=== PATIENT | male | born 1930 | race Caucasian/White ===

== ENCOUNTER 2016-03-24 10:15 | Inpatient (IN) | payer MEDICARE ==
[~2016-03-24] VITALS: Ht 188 cm; Wt 115.7 kg
[2016-03-24] MEDS ORDERED: ASPIRIN 300 MG SUPP RECTAL ONE (10:57)
[2016-03-24] MEDS ORDERED: SODIUM CHLORIDE 0.9% 1,000 ML ONE (11:07)
[2016-03-24] MEDS ORDERED: GLUCAGON 1 MG VIAL IM PRN (13:05)
[2016-03-24] MEDS ORDERED: ACETAMINOPHEN 325 MG TAB PO PRN (13:05)
[2016-03-24] MEDS ORDERED: DEXTROSE 50% SYRINGE 50 ML IV PRN (13:05)
[2016-03-24] MEDS ORDERED: SALINE FLUSH 10 ML FLUSH PRN (13:05)
[2016-03-24] MEDS: NEB-ALBUTEROL 2.5 MG/3 ML INH SCH ×6 (14:00→22:29)
[2016-03-24] MEDS ORDERED: NEB-ALBUTEROL 2.5 MG/3 ML INH ONE (15:10)
[2016-03-24 16:23] VITALS: RESP 18
[2016-03-24] MEDS ORDERED: OPTIRAY 350 100 ML VIAL HMH IV ONE (16:40)
[2016-03-24 18:50] VITALS: BP_SYST 120; RESP 18
[2016-03-24 18:51] VITALS: Ht 188 cm; Wt 115.7 kg
[2016-03-24] MEDS: LACT RINGERS 1,000 ML IV SCH (19:19)
[2016-03-24] MEDS: SALINE FLUSH 10 ML FLUSH SCH (20:00)
[2016-03-24] MEDS: NYSTATIN/TRIAMCIN OINT 15 GM TOPICAL SCH (20:46)
[2016-03-24] MEDS: Atorvastatin 20 MG TAB PO SCH (21:00)
[2016-03-24 21:15] VITALS: TEMP 98.3
[2016-03-24] MEDS: FAMOTIDINE 20 MG INJ IV SCH (21:23)
[2016-03-24 23:53] VITALS: BP_SYST 109; RESP 20; TEMP 98.3
[2016-03-25 03:10] VITALS: BP_SYST 120; RESP 18; TEMP 99.3
[2016-03-25] MEDS: SODIUM CHLORIDE 0.9% FLUSH BAG 500 ML IV SCH (05:07)
[2016-03-25] MEDS ORDERED: LEVOTHYROXINE 0.15 MG TAB PO SCH (07:00)
[2016-03-25 07:25] VITALS: BP_SYST 132; BP_SYST 186; RESP 22; TEMP 98.3
[2016-03-25] MEDS: FAMOTIDINE 20 MG INJ IV SCH ×2 (08:27→21:47)
[2016-03-25] MEDS: SALINE FLUSH 10 ML FLUSH SCH ×2 (08:27→21:47)
[2016-03-25] MEDS: NYSTATIN/TRIAMCIN OINT 15 GM TOPICAL SCH ×3 (08:28→21:48)
[2016-03-25] MEDS ORDERED: ASPIRIN 300 MG SUPP RECTAL SCH (09:00)
[2016-03-25] MEDS: Aspirin 325 MG TAB PO SCH (09:43)
[2016-03-25] MEDS: Finasteride 5 MG TAB PO SCH (09:44)
[2016-03-25 11:59] VITALS: BP_SYST 136; RESP 18; TEMP 98
[2016-03-25] MEDS: LEVOTHYROXINE 0.175 MG TAB PO SCH (13:25)
[2016-03-25] MEDS: LISINOPRIL 5 MG TAB PO SCH (13:26)
[2016-03-25] MEDS: ACETAMINOPHEN 500 MG TAB PO SCH ×2 (13:59→21:00)
[2016-03-25 16:32] VITALS: BP_SYST 112; RESP 18; TEMP 98.5
[2016-03-25] MEDS: Atorvastatin 20 MG TAB PO SCH (21:00)
[2016-03-25] MEDS: ESCITALOPRAM 10 MG TAB PO SCH (21:00)
[2016-03-25] MEDS: TRAZODONE 50 MG TAB PO SCH (21:00)
[2016-03-25 21:24] VITALS: BP_SYST 134; RESP 18; TEMP 98.7
[2016-03-26 01:28] VITALS: BP_SYST 118; RESP 20; TEMP 98.3
[2016-03-26] MEDS: ACETAMINOPHEN 500 MG TAB PO SCH ×3 (05:00→20:40)
[2016-03-26] MEDS: SODIUM CHLORIDE 0.9% FLUSH BAG 500 ML IV SCH (05:58)
[2016-03-26 07:49] VITALS: BP_SYST 118; RESP 16; TEMP 98.3
[2016-03-26] MEDS: LISINOPRIL 5 MG TAB PO SCH (09:30)
[2016-03-26] MEDS: Finasteride 5 MG TAB PO SCH (09:31)
[2016-03-26] MEDS: SALINE FLUSH 10 ML FLUSH SCH ×2 (09:31→20:00)
[2016-03-26] MEDS: Aspirin 325 MG TAB PO SCH (09:31)
[2016-03-26] MEDS: LEVOTHYROXINE 0.175 MG TAB PO SCH (09:31)
[2016-03-26] MEDS: FAMOTIDINE 20 MG INJ IV SCH ×2 (09:33→20:47)
[2016-03-26] MEDS ORDERED: MISSING DOSE XX ONE ×2 (09:55→10:55)
[2016-03-26 11:46] VITALS: BP_SYST 124; RESP 18; TEMP 98.6
[2016-03-26] MEDS: NYSTATIN/TRIAMCIN OINT 15 GM TOPICAL SCH ×2 (12:29→18:33)
[2016-03-26 19:41] VITALS: BP_SYST 140; RESP 18; TEMP 98.4
[2016-03-26] MEDS: Atorvastatin 20 MG TAB PO SCH (20:40)
[2016-03-26] MEDS: TRAZODONE 50 MG TAB PO SCH (20:40)
[2016-03-26] MEDS: ESCITALOPRAM 10 MG TAB PO SCH (20:40)
[2016-03-26 23:43] VITALS: BP_SYST 149; RESP 20; TEMP 98.4
[2016-03-27] VITALS (10 sets, daily range): BP systolic 122–148; RESP 18–20; TEMP 97.5–98.5
[2016-03-27] MEDS: NYSTATIN/TRIAMCIN OINT 15 GM TOPICAL SCH ×4 (00:56→21:09)
[2016-03-27] MEDS: LACT RINGERS 1,000 ML IV SCH (01:00)
[2016-03-27] MEDS: SODIUM CHLORIDE 0.9% FLUSH BAG 500 ML IV SCH (06:00)
[2016-03-27] MEDS: ACETAMINOPHEN 500 MG TAB PO SCH ×3 (06:46→21:12)
[2016-03-27] MEDS: LEVOTHYROXINE 0.175 MG TAB PO SCH (06:49)
[2016-03-27] MEDS: Finasteride 5 MG TAB PO SCH (10:39)
[2016-03-27] MEDS: FAMOTIDINE 20 MG INJ IV SCH ×2 (10:39→21:08)
[2016-03-27] MEDS: Aspirin 325 MG TAB PO SCH (10:39)
[2016-03-27] MEDS: LISINOPRIL 5 MG TAB PO SCH (10:39)
[2016-03-27] MEDS: SALINE FLUSH 10 ML FLUSH SCH ×2 (10:41→21:07)
[2016-03-27] MEDS ORDERED: CYANOCOBALAMIN 1000 MCG/ML VIAL IM ONE (14:20)
[2016-03-27] MEDS: CYANOCOBALAMIN 1000 MCG/ML VIAL IM SCH (15:50)
[2016-03-27] MEDS: TRAZODONE 50 MG TAB PO SCH (21:09)
[2016-03-27] MEDS: Atorvastatin 20 MG TAB PO SCH (21:09)
[2016-03-27] MEDS: ESCITALOPRAM 10 MG TAB PO SCH (21:09)
[2016-03-28 04:04] VITALS: BP_SYST 134; RESP 20; TEMP 97.8
[2016-03-28] MEDS: SODIUM CHLORIDE 0.9% FLUSH BAG 500 ML IV SCH (06:00)
[2016-03-28] MEDS: ACETAMINOPHEN 500 MG TAB PO SCH ×3 (06:30→20:57)
[2016-03-28] MEDS: LEVOTHYROXINE 0.175 MG TAB PO SCH (06:30)
[2016-03-28 07:32] VITALS: BP_SYST 136; RESP 18; TEMP 98
[2016-03-28] MEDS: FAMOTIDINE 20 MG INJ IV SCH (09:06)
[2016-03-28] MEDS: CYANOCOBALAMIN 1000 MCG/ML VIAL IM SCH (09:07)
[2016-03-28 11:39] VITALS: BP_SYST 176; RESP 18; TEMP 97.5
[2016-03-28] MEDS ORDERED: CHLORASEPTIC 180 ML BTL PO PRN (12:00)
[2016-03-28] MEDS: LISINOPRIL 5 MG TAB PO SCH (12:02)
[2016-03-28] MEDS: Finasteride 5 MG TAB PO SCH (12:02)
[2016-03-28] MEDS: Aspirin 325 MG TAB PO SCH (12:02)
[2016-03-28] MEDS: SALINE FLUSH 10 ML FLUSH SCH ×2 (12:37→20:57)
[2016-03-28] MEDS: NYSTATIN/TRIAMCIN OINT 15 GM TOPICAL SCH ×3 (12:37→21:02)
[2016-03-28] MEDS ORDERED: MISSING DOSE XX ONE (12:40)
[2016-03-28 15:28] VITALS: BP_SYST 144; RESP 18; TEMP 97.7
[2016-03-28 19:51] VITALS: BP_SYST 144; RESP 18; TEMP 98.1
[2016-03-28] MEDS: ESCITALOPRAM 10 MG TAB PO SCH (20:57)
[2016-03-28] MEDS: Atorvastatin 20 MG TAB PO SCH (20:57)
[2016-03-28 22:40] VITALS: BP_SYST 146; RESP 18; TEMP 98.4
[2016-03-29 04:17] VITALS: BP_SYST 149; RESP 18; TEMP 97.4
[2016-03-29] MEDS: SODIUM CHLORIDE 0.9% FLUSH BAG 500 ML IV SCH (05:45)
[2016-03-29] MEDS ORDERED: MISSING DOSE XX ONE (05:50)
[2016-03-29] MEDS: ACETAMINOPHEN 500 MG TAB PO SCH ×3 (05:58→19:43)
[2016-03-29] MEDS: LEVOTHYROXINE 0.175 MG TAB PO SCH (06:00)
[2016-03-29 07:20] VITALS: BP_SYST 151; RESP 18; TEMP 97.8
[2016-03-29 11:08] VITALS: BP_SYST 118; RESP 18; TEMP 97.7
[2016-03-29] MEDS: CYANOCOBALAMIN 1000 MCG/ML VIAL IM SCH (11:47)
[2016-03-29] MEDS: Finasteride 5 MG TAB PO SCH (11:47)
[2016-03-29] MEDS: Aspirin 325 MG TAB PO SCH (11:47)
[2016-03-29] MEDS: LISINOPRIL 5 MG TAB PO SCH (11:47)
[2016-03-29] MEDS: NYSTATIN/TRIAMCIN OINT 15 GM TOPICAL SCH ×3 (11:48→19:41)
[2016-03-29] MEDS: SALINE FLUSH 10 ML FLUSH SCH ×2 (11:48→19:42)
[2016-03-29 14:46] VITALS: BP_SYST 125; RESP 18; TEMP 97.8
[2016-03-29 19:26] VITALS: BP_SYST 130; RESP 20; TEMP 97.9
[2016-03-29] MEDS: ESCITALOPRAM 10 MG TAB PO SCH (19:42)
[2016-03-29] MEDS: Atorvastatin 20 MG TAB PO SCH (19:42)
[2016-03-29 22:45] VITALS: BP_SYST 151; RESP 18; TEMP 97.7
[2016-03-30 02:50] VITALS: BP_SYST 145; RESP 18; TEMP 97.5
[2016-03-30] MEDS: ACETAMINOPHEN 500 MG TAB PO SCH ×2 (04:30→12:19)
[2016-03-30] MEDS: SODIUM CHLORIDE 0.9% FLUSH BAG 500 ML IV SCH (04:31)
[2016-03-30] MEDS: LEVOTHYROXINE 0.175 MG TAB PO SCH (05:53)
[2016-03-30 07:33] VITALS: BP_SYST 148; RESP 15; TEMP 98.2
[2016-03-30] MEDS: SALINE FLUSH 10 ML FLUSH SCH (09:50)
[2016-03-30] MEDS: NYSTATIN/TRIAMCIN OINT 15 GM TOPICAL SCH ×2 (09:51→17:53)
[2016-03-30] MEDS: Aspirin 325 MG TAB PO SCH (09:51)
[2016-03-30] MEDS: CYANOCOBALAMIN 1000 MCG/ML VIAL IM SCH (09:51)
[2016-03-30] MEDS: LISINOPRIL 5 MG TAB PO SCH (09:51)
[2016-03-30] MEDS: Finasteride 5 MG TAB PO SCH (09:51)
[2016-03-30 11:18] VITALS: BP_SYST 136; RESP 15; TEMP 98.3
[2016-03-30 15:25] VITALS: BP_SYST 135; RESP 15; TEMP 98.3
[2016-03-30 18:04] VITALS: BP_SYST 135; RESP 15; TEMP 98.3
== END 2016-03-30 19:00 | DRG 637 ==
LOC: ENRESERVDT → ENRESERVTM → ER 10:15 → ENPENDDIS 13:05 → EMR 13:05 → PCU2 16:05 → 5THE 03-28 03:33
PROVIDERS: ADMIT Internal Medicine; ATTEND Internal Medicine
DX: E09.649 Drug or chemical induced diabetes mellitus with hypoglycemia without coma (principal); G93.41 Metabolic encephalopathy; E11.22 Type 2 diabetes mellitus with diabetic chronic kidney disease; F03.90 Unspecified dementia, unspecified severity, without behavioral disturbance, psychotic disturbance, mood disturbance, and anxiety; G81.91 Hemiplegia, unspecified affecting right dominant side; T38.3X5A Adverse effect of insulin and oral hypoglycemic [antidiabetic] drugs, initial encounter; Z79.84 Long term (current) use of oral hypoglycemic drugs; R47.1 Dysarthria and anarthria; I12.9 Hypertensive chronic kidney disease with stage 1 through stage 4 chronic kidney disease, or unspecified chronic kidney disease; N18.3 Chronic kidney disease, stage 3 (moderate); E11.51 Type 2 diabetes mellitus with diabetic peripheral angiopathy without gangrene; I71.4 Abdominal aortic aneurysm, without rupture; M19.90 Unspecified osteoarthritis, unspecified site; E78.5 Hyperlipidemia, unspecified; E03.9 Hypothyroidism, unspecified; F32.9 Major depressive disorder, single episode, unspecified; N40.0 Benign prostatic hyperplasia without lower urinary tract symptoms; E53.8 Deficiency of other specified B group vitamins
CPT/HCPCS: 36415; 70450; 70496; 70498; 70551; 71010; 80047; 80048; 80053; 80061; 81001; 82553; 82607; 82746; 82803; 82947; 83540; 84132; 84439; 84443; 84466; 84484; 85014; 85025; 85384; 85610; 85730; 93005; 93306; 94640; 96360; 96361; 99223; 99232; 99233; 99239